=== PATIENT | female | born 1985 | race Caucasian/White ===

== ENCOUNTER 2019-08-19 08:16 | Emergency (ER) | payer MEDICAID ==
[~2019-08-19] VITALS: Ht 153.7 cm; Wt 40.8 kg
[2019-08-19 08:26] VITALS: BP 125/74
--- NOTE | 2019-08-19 08:33 | NUR ---
34/F 34/F C/O LT NECK LUMP/PAIN X 1 MONTH. SAW PCP WHO RX CEPHALEXIN AND STATES THE LUMP HAS GONE DOWN AFTER ABX BUT HAS BECOME PAINFUL 4-02/27. HAS NOT GOTTEN US OR OTHER IMAGING DONE. DENIES SOB, DYSPHAGIA. MASS FELT ON LEFT ANTEROLATERAL NECK, FIRM, TTP. HX- DENIES NKA
--- NOTE | 2019-08-19 08:42 | NUR ---
DR VITALE AT BEDSIDE
[2019-08-19] MEDS ORDERED: KETOROLAC 30 MG/ML VIAL IM ONE (08:50)
--- NOTE | 2019-08-19 08:58 | NUR ---
DR. VITALE SPEAKING WITH PATIENT AT BEDSIDE.
--- NOTE | 2019-08-19 09:02 | NUR ---
US TECH AT BEDSIDE.
--- NOTE | 2019-08-19 09:21 | NUR ---
SORTER LAUNDRY ARTICLES AT BEDSIDE.
[2019-08-19 09:31] LABS: BASOPHILS % (AUTO) 0.4 % (0.0-2.0); EOSINOPHILS % (AUTO) 1.1 % (0.0-4.0); HEMOGLOBIN 15.2 g/dL (12.0-16.0); LYMPHOCYTES # (AUTO) 1.7 K/uL (2.5-16.5); LYMPHOCYTES % (AUTO) 42.5 % (20.5-51.1); MEAN CORPUSCULAR HEMOGLOBIN 30 pg (27-31); MEAN CORPUSCULAR HGB CONC 34 g/dL (33-37); MEAN CORPUSCULAR VOLUME 89.9 fL (80-94); MONOCYTES # (AUTO) 0.2 K/uL (0.8-1.0); MONOCYTES % (AUTO) 5.8 % (1.7-9.3); NEUTROPHILS % (AUTO) 50.2 % (42.2-75.2); PLATELET COUNT (AUTO) 202 K/uL (140-450); RED BLOOD CELL COUNT(AUTO) 5.01 MIL/uL (4.20-5.40); RED CELL DISTRIBUTION WIDTH 12.6 % (11.6-13.7)
--- NOTE | 2019-08-19 10:37 | NUR ---
DR. VITALE SPEAKING WITH PATIENT AT BEDSIDE.
[2019-08-19 10:45] LABS: FREE T4 (FREE THYROXINE) 0.89 ng/dL (0.76-1.46); THYROID STIMULATING HORMONE 1.64 uIU/mL (0.34-3.74)
[2019-08-19 10:57] LABS: POTASSIUM 4.3 mmol/L (3.5-5.1)
[2019-08-19 10:58] LABS: ANION GAP 15.3 (8-16); CREATININE 0.6 mg/dL (0.6-1.3)
[2019-08-19 11:05] VITALS: BP 143/70
== END 2019-08-19 11:05 | disposition home or self-care (01) ==
LOC: MED 08:16
DX: R22.1 Localized swelling, mass and lump, neck (principal)
CPT/HCPCS: 36415; 76536; 80048; 84439; 84443; 85025; 96372; 99284; J1885; Q0092